=== PATIENT | female | born 2000 | race Caucasian/White ===

== ENCOUNTER 2024-11-06 20:33 | Emergency (ER) | payer MEDICAID, OTHER ==
[~2024-11-06] VITALS: Ht 167.6 cm; Wt 139.0 kg
[~2024-11-06 20:33] MED LIST: HYDR-4902 PO; ZOFR4T PO
[2024-11-06 20:43] VITALS: BP 159/93; PULSE 98; RESP 17; TEMP 99; O2SAT 96
[2024-11-06 20:56] LABS: Urine Bacteria None Seen /hpf (None Seen)
--- NOTE | 2024-11-06 20:59 | ED.PDOC ---
GI ASSESSMENT HPI Comments 24 y/o morbidly obese F, with a history of unmanaged HTN and unspecified "stomach acid" disorder, presents with c/o abdominal pain, with associated shortness of breathe, nausea, and dry-heaving, for the past 3x days, today. Patient reports on having abdominal pain, intermittently and sporadically, for the past 3x months, with most recent episode onset within the past 3x days being the most severe. She comments on pain starting in her mid-abdomen prior to then radiating to epigastric and bilateral upper quadrants areas, with occasional difficulty breathing sensations and inability to twist or turn her torso as much due to it. Patient further reports on isolated episode of pain radiating to her chest 2x days ago. She endorse on no recent injuries, strenuous activities, stressors, significant medical, surgical, or family cardiac history in addition to denying on being , currently, with LMP reported on 10/24/24. Patient denies any current chest pain, vomiting, diarrhea, urinary symptoms, fever, chills, or other associated symptoms or modifiers at this time. Chief Complaint: Abdominal Pain Time Seen by MD: 20:42 Primary Care Provider: unknown Reviewed Notes: Nurses Notes, Medications, Allergies Allergies: Coded Allergies: NO KNOWN ALLERGIES (Unverified , 10/16/23) Home Meds Active Scripts Ondansetron Odt 4MG Tab (ZOFRAN PO) 4 Mg Tb, 1 TAB PO Q8HPRN PRN, #10 TAB as needed for painODT TAB-DISSOLVE IN MOUTH, THEN SWALLOW Prov:DE LA CRUZ,NORALDA Q ADVERTISING ACCOUNT REPRESENTATIVE 10/16/23 Hydrocodone-Acetaminophen (Hydrocodone Bitartrate/AC 5-325 mg) 1 Tab Tab, 1 TAB PO Q6HPRN PRN, #10 TAB as needed for pain Prov:DE LA CRUZ,NORALDA Q ADVERTISING ACCOUNT REPRESENTATIVE 10/16/23 Information Source: Patient Mode of Arrival: Ambulatory Timing: Months Duration: Intermittent Prehospital treatment: None Vomitus: None Stool: Normal Severity: Moderate Recent: None Recent Hx of: Other (HTN) Pain Location: Other (see HPI) Modifying Factors: Nothing Associated sign and symptoms: Other (see HPI) Past Medical History PAST MEDICAL HISTORY: HTN Past Medical History (Other): morbid obesity Surgical History: Denies all surgeries 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: No Pertinent COLD MILL SUPERVISOR History Family History Family History: Reviewed,noncontributory to illness, No family hx of Cancer, No family hx of DM, No family hx of Heart [place], No family hx of HTN, No family hx ofKidney [place], No family hx of Liver [place], No family hx of Lung [place], No family hx of Stroke Social History Smoker: Non-Smoker Alcohol: Denies ETOH Use Drugs: Denies Drug Use Lives In: Home All Other Systems: Reviewed and Negative (Comprehensive systems review obtained and negative except for what is stated in the HPI.) Physical Exam General Appearance: No Apparent Distress, Obese HEENT: Normal ENT Inspection, Pharynx Normal, TMs Normal Neck: Full Range of Motion, Non-Tender, Normal, Normal Inspection Respiratory: Chest Non-Tender, Lungs Clear, No Accessory Muscle Use, No Respi ratory Distress, Normal Breath Sounds Cardiovascular: No Edema, No JVD, No Murmur, No Gallop, Normal Peripheral Pulses, Regular Rate/Rhythm Breast Exam: Deferred Gastrointestinal: No Organomegaly, Non Tender, No Pulsatile Mass, Normal Bowel Sounds, Soft Genitalia: Deferred Pelvic: Deferred Rectal: Deferred Extremities: No calf tenderness, Normal capillary refill, Normal inspection, Normal range of motion, Non-tender, No pedal edema Musculoskeletal : Apperance: Normal Neurologic: Alert, manager steel II-XII nml as Tested, No Motor Deficits, Normal Affect, Normal Mood, No Sensory Deficits Cerebellar Function: Normal Reflexes: Normal Skin: Dry, Normal Color, Warm Lymphatic: No Adenopathy Was a procedure done? Was a procedure done?: No GI differential Dx Differential Diagnosis: Cholecystitis, Gastritis/PUD, Gastroenteritis, Electrolyte Imbalance, Food Poisoning, , Viral, Other (cholelithiasis) X-Ray, Labs, Meds, VS Vital Signs Date Time Temp Pulse Resp B/P (MAP) Pulse Ox O2 Delivery O2 Flow Rate FiO2 11/06/24 20:43 99.0 98 17 159/93 (115) 96 99.0 Lab Test 11/06/24 21:07 11/06/24 20:48 Range/Units White Blood Count 12.2 H 4.4-10.8 10^3/uL Red Blood Count 4.48 4.0-5.20 10^6/uL Hemoglobin 12.5 12.2-16.2 g/dL Hematocrit 38.4 36.0-46.0 % Mean Corpuscular Volume 85.6 80.0-100.0 fL Mean Corpuscular Hemoglobin 28.0 28.0-32.0 pg Mean Corpuscular Hemoglobin Concent 32.7 32.0-36.0 g/dL Red Cell Distribution Width 14.6 H 11.8-14.3 % Platelet Count 358 140-450 10^3/uL Mean Platelet Volume 8.1 6.9-10.8 fL Neutrophils (%) (Auto) 60.1 37.0-80.0 % Lymphocytes (%) (Auto) 33.4 10.0-50.0 % Monocytes (%) (Auto) 4.9 0.0-12.0 % Eosinophils (%) (Auto) 0.5 0.0-7.0 % Basophils (%) (Auto) 1.1 0.0-2.0 % Neutrophils # (Auto) 7.4 1.6-8.6 10 ^3/uL Lymphocytes # (Auto) 4.1 0.4-5.4 10 ^3/uL Monocytes # (Auto) 0.6 0-1.3 10 ^3/uL Eosinophils # (Auto) 0.1 0-0.8 10 ^3/uL Basophils # (Auto) 0.1 0-0.2 10 ^3/uL Nucleated Red Blood Cells 0.0 % Sodium Level 140 136-145 mmol/L Potassium Level 3.9 3.5-5.1 mmol/L Chloride Level 107 98-107 mmol/L Carbon Dioxide Level 26 20-31 mmol/L Anion Gap 7 5-15 Blood Urea Nitrogen 11 9-23 mg/dL Creatinine 0.92 0.550-1.02 mg/dL Glomerular Filtration Rate Calc 90 >90 mL/min BUN/Creatinine Ratio 12.0 10.0-20.0 Serum Glucose 98 74-106 mg/dL Lactic Acid Level 1.4 0.4-2.0 mmol/L Calcium Level 9.7 8.7-10.4 mg/dL Total Bilirubin 0.3 0.2-1.0 mg/dL Aspartate Amino Transferase (AST) 14 13-40 U/L Alanine Aminotransferase (ALT) 26 7-40 U/L Alkaline Phosphatase 95 46-116 U/L Total Protein 7.5 5.7-8.2 g/dL Albumin 4.6 3.2-4.8 g/dL Lipase 31 12-53 U/L Urine Color Yellow Yellow Urine Clarity Clear Clear Urine pH 6.0 5.0-9.0 Urine Specific [place] 1.032 1.001-1.035 Urine Protein Trace H Negative Urine Ketones Trace Negative Urine Blood 2+ H Negative /uL Urine Nitrite Negative Negative Urine Bilirubin Negative Negative Urine Urobilinogen Normal Negative mg/dL Urine Leukocyte Esterase Negative Negative /uL Urine RBC 20 0 - 4 /hpf Urine Microscopic WBC 1 0-5 /HPF Urine Squamous Epithelial Cells Few <5 /hpf Urine Bacteria None seen None Seen /hpf Urine Mucus Few None Seen Urine Glucose Normal Normal mg/dL Urine Test Negative Negative [facility] [id number] [address] Ph: [phone] DIAGNOSTIC IMAGING Diagnostic Imaging Report : [id number] Signed PATIENT: MARIANNA MCCALL ACCT: [id number] UNIT: [id number] : 2000 LOC: ER ROOM / BED: / AGE / SEX: 24 / F ADM STATUS: REG ER SERVICE 00 ORDERING PHYSICIAN: MATT WHITLOCK PAC PROCEDURE(s): GBUS - GALLBLADDER REASON: R/o cholecystitis ORDER NUMBER(s): [id number], ACCESSION NUMBER(s): [id number] INDICATION: R/o cholecystitis TECHNIQUE: Multiple real-time sonographic images were obtained of the right upper quadrant. COMPARISON: US GALLBLADDER on DOS: 10/16/23 FINDINGS: Liver measures approximately 17.4 cm. The liver echogenicity is within normal limits with no focal lesions identified. There is no intrahepatic or extrahepatic ductal dilatation. Common bile duct measures 3 mm. Gallbladder appears unremarkable with no evidence of stones or wall thickening. Sonographic Martinez's sign was negative. Right kidney measures 11.8 cm and appears unremarkable. No hydronephrosis. Pancreas is not adequately visualized due to overlying bowel gas. No fluid collection. IMPRESSION: No evidence of cholelithiasis/cholecystitis. ATED BY: JOSE OLVERA MD DICTATED DATE/TIME: 11/06/242218 SIGNED BY: JOSE OLVERA MD SIGNED DATE/TIME: 11/06/242218 CC: X-Ray, Labs, Meds, VS Comment CT Abd/Pelv IMPRESSION: 1. No acute abdominal or pelvic findings. MDM: Patient with history as above presented with abdominal pain. History obtained from patient. Patient was nontoxic, stable, afebrile, ambulatory, no acute distress. Exam as above. Labs reviewed. CBC showed leukocytosis of 12.2, however no increased neutrophils. CMP not show any electrolyte abnormalities. Lactic acid within normal limits. Lipase within normal limits. Urinalysis was negative for acute infection. Urine test was negative. Independently reviewed imaging. Gallbladder ultrasound was unremarkable. CT abdomen/pelvis did not show any acute abdominal or pelvic findings. Reviewed external records. All findings were discussed with the patient. Differential diagnosis considered. Overall presentation is consistent with gastritis. Low suspicion for pancreatitis, cholecystitis, appendicitis. Patient did not want any medication in the ED Patient was reevaluated and vital signs were reviewed. Consideration was given for admission, but the patient was stable for outpatient management. Prescribed omeprazole for outpatient treatment. Disposition: Discussed the need to follow up diagnostics, including incidental findings. Discharged the patient with instructions to obtain outpatient follow up in 1-2 days of today's symptoms and findings, with strict return precautions if patient develops new or worsening symptoms. This medical document was created using the [employer] dictation system. Although this document has been carefully reviewed, there may still be some phonetic and typographical errors, which are due to imperfections of the software program, and do not reflect any compromise in the patient's medical car e. Time of 1ST Reevaluation: 21:12 Reevaluation 1ST: Unchanged Patient Education/Counseling: Diagnosis, Treatment Family Education/Counseling: No Family Present Additional Information Previous visit documents reviewed: October 16, 2023 encounter for abdominal pain The following tests were ordered, and results were reviewed by me: US gallbladder, urine test, lactic acid w/reflex, lipase, CMP, CBC, UA Additional Information was gathered from interviewing the following independent historians: n/a I reviewed and agreed with the following test results read by other providers: US gallbladder I discussed treatment and results with medical personnel and: Patient Departure 1 Departure Time of Disposition: 23:22 Impression: Primary Impression: Gastritis Qualified Codes: K29.70 - Gastritis, unspecified, without bleeding Disposition: HOME / SELF CARE / HOMELESS Condition: Fair e-Prescriptions Ondansetron Odt 4MG Tab (ZOFRAN PO) 4 Mg Tb 4 MG PO Q8HPRN PRN, #15 TAB ODT TAB-DISSOLVE IN MOUTH, THEN SWALLOW Prov: MATT WHITLOCK 11/06/24 Omeprazole (Omeprazole) 20 Mg Tab 20 MG PO DAILY, #30 TAB Prov: MATT WHITLOCK 11/06/24 Critical Care Note Critical Care Time?: No Stability Stability form required: No Heart Score Heart Score: Heart Score Response (Comments) Value History N/A 0 EKG N/A 0 Age N/A 0 Risk Factors N/A 0 Troponin N/A 0 Total 0 I personally scribed for MATT WHITLOCK PAC ([email or web address]) on 11/06/24 at 21:39. Electronically submitted by Santosh Jacobsen ([email or web address]). I personally scribed for MATT WHITLOCK PAC ([email or web address]) on 11/06/24 at 22:40. Electronically submitted by Santosh Jacobsen ([email or web address]). MATT WHITLOCK STACEY Nov 06, 2024 20:59
[2024-11-06 21:02] LABS: Urine Blood 2+ /uL (Negative); Urine Clarity Clear (Clear); Urine Color Yellow (Yellow); Urine Mucus FEW (None Seen); Urine Protein, UAD TRACE (Negative); Urine Specific Gravity 1.032 (1.001-1.035); Urine Squamous Epithelial Cell FEW /hpf (<5); Urine Urobilinogen Normal (Negative); Urine WBC 1 /HPF (0-5)
[2024-11-06 21:19] LABS: Basophils # (auto) 0.1 10 ^3/uL (0-0.2); Basophils % (auto) 1.1 % (0.0-2.0); Eosinophils # (auto) 0.1 10 ^3/uL (0-0.8); Eosinophils % (auto) 0.5 % (0.0-7.0); Hematocrit 38.4 % (36.0-46.0); Hemoglobin 12.5 g/dL (12.2-16.2); Lymphocytes # (auto) 4.1 10 ^3/uL (0.4-5.4); Lymphocytes % (auto) 33.4 % (10.0-50.0); Mean Corpuscular Hgb Conc. 32.7 g/dL (32.0-36.0); Mean Corpuscular Volume 85.6 fL (80.0-100.0); Monocytes # (auto) 0.6 10 ^3/uL (0-1.3); Monocytes % (auto) 4.9 % (0.0-12.0); Neutrophils # (auto) 7.4 10 ^3/uL (1.6-8.6); Neutrophils % (auto) 60.1 % (37.0-80.0); Platelet Count (auto) 358 10^3/uL (140-450); Red Blood Cells 4.48 10^6/uL (4.0-5.20); Red Cell Distribution Width 14.6 % (11.8-14.3); White Blood Cell 12.2 10^3/uL (4.4-10.8)
[2024-11-06 21:38] LABS: Alanine Aminotransferase 26 U/L (7-40); Albumin 4.6 g/dL (3.2-4.8); Alkaline Phosphatase 95 U/L (46-116); Anion Gap 7 (5-15); Aspartate Aminotransferase 14 U/L (13-40); Blood Urea Nitrogen 11 mg/dL (9-23); Calcium 9.7 mg/dL (8.7-10.4); Carbon Dioxide 26 mmol/L (20-31); Glucose 98 mg/dL (74-106); Lipase 31 U/L (12-53); Potassium 3.9 mmol/L (3.5-5.1); Sodium 140 mmol/L (136-145); Total Protein 7.5 g/dL (5.7-8.2)
[2024-11-06 22:03] LABS: Bilirubin, Total 0.3 mg/dL (0.2-1.0); Chloride 107 mmol/L (98-107)
--- NOTE | 2024-11-06 22:22 | DVH ---
INDICATION: R/o cholecystitis TECHNIQUE: Multiple real-time sonographic images were obtained of the right upper quadrant. COMPARISON: US GALLBLADDER on DOS: 10/16/23 FINDINGS: Liver measures approximately 17.4 cm. The liver echogenicity is within normal limits with no focal le sions identified. There is no intrahepatic or extrahepatic ductal dilatation. Common bile duct measures 3 mm. Gallbladder appears unremarkable with no evidence of stones or wall thickening. Sonographic Martinez's sign was negative. Right kidney measures 11.8 cm and appears unremarkable. No hydronephrosis. Pancreas is not adequately visualized due to overlying bowel gas. No fluid collection. IMPRESSION: No evidence of cholelithiasis/cholecystitis.
--- NOTE | 2024-11-06 23:07 | DVH ---
Exam: CT CT AB PEL WO CON-NO ORAL OR IV History: Abdominal pain Comparison Study: None Technique: Multidetector spiral CT of the abdomen was performed from lung bases to pubic symphysis. Imaging was performed without IV contrast. Axial, coronal and sagittal multiplanar reformats were ob tained from the axial data set by the technologist. Radiation Dose : 1. Abdomen/Pelvis: CTDIvol 27.54 mGy, DLP 1472.91 mGy*cm. Findings: Evaluation of solid organs is limited due to lack of intravenous contrast use. Lung Bases: No acute or significant lung base finding. Normal heart size. No pleural or pericardial effusion. Liver: The liver is normal in size. No focal lesions. Gallbladder and Biliary Tree: Unremarkable Spleen: Unremarkable Pancreas: The pancreas is grossly normal in appearance. Adrenal Glands: Unremarkable Kidneys: Kidneys are grossly normal without calculi or hydronephrosis. Bladder: Grossly unremarkable for degree of distention. Bowel: The stomach is grossly normal in appearance. Small bowel and colon are normal in caliber and d istribution. The appendix is not visualized; however, no secondary findings of acute appendicitis id entified. Ascites: Absent Lymphadenopathy: No mesenteric, retroperitoneal or periportal lymphadenopathy. Abdominal Wall and Mesentery: Unremarkable. Vasculature: The visualized abdominal aorta is normal in size and caliber. Evaluation of abdominal a nd pelvic vessels is limited due to lack of intravenous contrast. Pelvic Organs: Unremarkable Musculoskeletal: No aggressive focal bony lesions, acute fractures or dislocation. IMPRESSION: 1. No acute abdominal or pelvic findings. Radiation optimization: All CT scans at this facility use at least one of these dose optimization mayda hniques: automated exposure control mA and/or kV adjustment per patient size (includes targeted exam s where dose is matched to clinical indication) or iterative reconstruction.
[2024-11-06] MEDS ORDERED: OMEP-335 PO (23:23)
[2024-11-06] MEDS ORDERED: ZOFR4T PO (23:23)
== END 2024-11-07 06:20 | disposition home or self-care (01) ==
LOC: ER 20:33
DX: K29.70 Gastritis, unspecified, without bleeding (principal); I10 Essential (primary) hypertension; E66.01 Morbid (severe) obesity due to excess calories; Z79.899 Other long term (current) drug therapy; Z32.02 Encounter for pregnancy test, result negative
CPT/HCPCS: 36415; 74176; 76705; 80053; 81001; 81025; 83605; 83690; 85025